=== PATIENT | female | born 1980 | race Two or more races ===

== ENCOUNTER 2020-08-28 13:30 | Inpatient (IN) | payer OTHER ==
[~2020-08-28 13:30] MED LIST: CITRIC ACID/SODIUM CITRATE 30 ML UNIT-DOSE CUP PO ONE; ELECTROLYTE-148 SOLN 1,000 ML IV SCH
[2020-08-28] MEDS ORDERED: ELECTROLYTE-148 SOLN 1,000 ML IV SCH (14:00)
[2020-08-28 15:03] LABS: BASO % 0.3 % (0-2.0); EOS % 1.8 % (0-4.5); HEMATOCRIT 42.3 % (32.4-45.2); LYMPH % 24.1 % (8-40); MCH 29.1 pg (25.7-33.7); MEAN CELL VOLUME 88.3 fl (80-96); MONO % 8.8 % (3.8-10.2); PLATELET COUNT 199 K/MM3 (134-434); RDW 14.8 % (11.6-15.6)
[2020-08-28 15:05] VITALS: BMI 34.5
[2020-08-28 15:09] LABS: INR 0.97 (0.83-1.09); PROTHROMBIN TIME (PATIENT) 11.8 SEC (9.7-13.0)
[2020-08-28 15:12] LABS: ACTIVATED PTT 25.4 SECONDS (25.2-36.5)
[2020-08-28 15:14] LABS: BLOOD UREA NITROGEN 10.3 mg/dL (7-18); CALCIUM 9.8 mg/dL (8.5-10.1)
[2020-08-28 15:17] LABS: CREATININE 0.5 mg/dL (0.55-1.3)
[2020-08-28] MEDS ORDERED: LIGASURE IMPACT TP ONE (15:25)
[2020-08-28] MEDS ORDERED: ONDANSETRON 4 MG/2 ML VIAL IVPUSH PRN (15:47)
[2020-08-28] MEDS ORDERED: OXYTOCIN 20 UNITS in 0.9% NS 20 UNIT/1,000 ML INFUS.BAG IV ONE ×2 (15:48→17:01)
[2020-08-28] MEDS ORDERED: morphine SULFATE/PF 1 MG/2 ML (2cc Syringe - QUVA) ONE (15:49)
[2020-08-28] MEDS ORDERED: ePHEDrine SULFATE 50 MG/1 ML AMPULE ONE (15:50)
[2020-08-28] MEDS ORDERED: PHENYLEPHRINE HCL 10 MG/1 ML SINGLE DOSE VIAL ONE (15:50)
[2020-08-28] MEDS ORDERED: OXYTOCIN 10 UNITS/ML VIAL ONE (15:51)
[2020-08-28] MEDS ORDERED: SIMETHICONE 80 MG TAB.CHEW (FP) PO PRN (16:18)
[2020-08-28] MEDS ORDERED: ONDANSETRON 4 MG/2 ML VIAL IVPB PRN (16:18)
[2020-08-28] MEDS ORDERED: SENNOSIDES/DOCUSATE COMBO (SENNA PLUS) TABLET (UD) PO PRN (16:18)
[2020-08-28] MEDS ORDERED: INSULIN SLIDING SCALE (NOVOLOG) 1 VIAL SQ SCH (16:30)
[2020-08-28] MEDS ORDERED: IBUPROFEN 600 MG TABLET (FP) PO PRN (17:28)
[2020-08-28] MEDS ORDERED: IBUPROFEN 800 MG/8 ML IJ IVPB PRN (17:28)
[2020-08-28] MEDS: OXYTOCIN 20 UNITS in 0.9% NS 20 UNIT/1,000 ML INFUS.BAG IV SCH ×2 (18:00→23:03)
[2020-08-28] MEDS ORDERED: METHYLERGONOVINE MALEATE 0.2 MG/1 ML AMP IM ONE (20:15)
[2020-08-29 06:31] LABS: ALBUMIN 2.1 g/dl (3.4-5.0); BLOOD UREA NITROGEN 11.6 mg/dL (7-18)
[2020-08-29 06:35] LABS: BASO % 0.2 % (0-2.0); CREATININE 0.6 mg/dL (0.55-1.3); EOS % 0.1 % (0-4.5); HEMATOCRIT 34.8 % (32.4-45.2); HEMOGLOBIN 11.8 GM/dL (10.7-15.3); LYMPH % 14.5 % (8-40); MCH 29.7 pg (25.7-33.7); MCHC 33.9 g/dl (32.0-36.0); MEAN CELL VOLUME 87.4 fl (80-96); MEAN PLT VOLUME 9.1 fl (7.5-11.1); NEUT % 79.2 % (42.8-82.8); PLATELET COUNT 175 K/MM3 (134-434); RBC 3.99 M/mm3 (3.60-5.2); RDW 14.6 % (11.6-15.6); WHITE BLOOD COUNT 13.2 K/mm3 (4.0-10.0)
[2020-08-29 06:36] LABS: BILIRUBIN,TOTAL 0.3 mg/dL (0.2-1); TOT PROT 4.8 g/dl (6.4-8.2)
[2020-08-29 06:57] LABS: CALCIUM 7.8 mg/dL (8.5-10.1)
[2020-08-29] MEDS: ACETAMINOPHEN 1000 MG/100 ML BAG IVPB PRN ×2 (08:08→14:16)
[2020-08-29] MEDS: PRENATAL VITAMINS W/ FOLIC ACID TABLET (FP) PO SCH (09:57)
[2020-08-29] MEDS ORDERED: FLU VACCINE (FLULAVAL) PF 60 MCG/0.5 ML SYRINGE 2020-2021 IM ONE (10:00)
[2020-08-29] MEDS ORDERED: BISACODYL 10 MG SUPP.RECT RC PRN (16:20)
[2020-08-29] MEDS: ACETAMINOPHEN 325 MG TABLET (FP) PO PRN (20:30)
[2020-08-29] MEDS: oxyCODONE HCL 5 MG TABLET PO PRN (20:30)
[2020-08-30] MEDS: oxyCODONE HCL 5 MG TABLET PO PRN (02:40)
[2020-08-30] MEDS: ACETAMINOPHEN 325 MG TABLET (FP) PO PRN (02:40)
[2020-08-30] MEDS ORDERED: DOCUSATE SODIUM 100 MG CAPSULE (FP) PO PRN (08:27)
[2020-08-30] MEDS: ACETAMINOPHEN 500 MG TABLET (FP) PO SCH ×3 (09:15→21:53)
[2020-08-30] MEDS: PRENATAL VITAMINS W/ FOLIC ACID TABLET (FP) PO SCH (09:16)
[2020-08-30] MEDS ORDERED: KETOROLAC TROMETHAMINE 30 MG/1 ML VIAL IVPUSH ONE (11:15)
[2020-08-30] MEDS ORDERED: IBUPROFEN 600 MG TABLET (FP) PO PRN (18:00)
[2020-08-31] MEDS: ACETAMINOPHEN 500 MG TABLET (FP) PO SCH ×2 (07:13→09:21)
[2020-08-31] MEDS: PRENATAL VITAMINS W/ FOLIC ACID TABLET (FP) PO SCH (09:19)
[2020-08-31 10:18] VITALS: BP 138/76; PULSE 78; TEMP 98.2
== END 2020-08-31 13:40 | disposition home or self-care (01) | DRG 540 ==
LOC: JDEL 13:30 → JLDR 13:31 → J3W 20:30
PROVIDERS: ADMIT Specialist; ATTEND Specialist
PROC: 10D00Z1 Extraction of Products of Conception, Low, Open Approach (ICD-10-PCS; principal; 2020-08-28)
PROC: 0UT70ZZ Resection of Bilateral Fallopian Tubes, Open Approach (ICD-10-PCS; 2020-08-28)
PROC: 0DNW0ZZ Release Peritoneum, Open Approach (ICD-10-PCS; 2020-08-28)
DX: O34.219 Maternal care for unspecified type scar from previous cesarean delivery (principal); O24.425 Gestational diabetes mellitus in childbirth, controlled by oral hypoglycemic drugs; Z3A.39 39 weeks gestation of pregnancy; Z37.0 Single live birth; O40.3XX0 Polyhydramnios, third trimester, not applicable or unspecified; O77.0 Labor and delivery complicated by meconium in amniotic fluid; Z30.2 Encounter for sterilization; O99.892 Other specified diseases and conditions complicating childbirth; N73.6 Female pelvic peritoneal adhesions (postinfective); O34.13 Maternal care for benign tumor of corpus uteri, third trimester; D25.9 Leiomyoma of uterus, unspecified
CPT/HCPCS: 36415; 80048; 80053; 82962; 85025; 85610; 85730; 86780; 86850; 86900; 86901; C9803; G0008; J0131; Q2036; U0003; U0005